=== PATIENT | male | born 1960 | race Caucasian/White ===

== ENCOUNTER 2017-08-26 01:27 | Emergency (ER) | payer MEDICARE, OTHER ==
[~2017-08-26] VITALS: Ht 177.8 cm; Wt 102.3 kg
[2017-08-26] MEDS ORDERED: METO1TAB32 PO (01:49)
[2017-08-26] MEDS ORDERED: LIPI80TA PO (01:49)
[2017-08-26] MEDS ORDERED: BRIL90TA PO (01:49)
[2017-08-26] MEDS ORDERED: ASPI81CH PO (01:49)
[2017-08-26] MEDS ORDERED: LISI2.5T3 PO (01:49)
[2017-08-26] MEDS ORDERED: HYDROmorphone HCL 1 MG/ML SYRINGE (J1170) As Ordered ONE (02:32)
[2017-08-26] MEDS ORDERED: LORazepam 2 MG/ML VIAL (J2060) As Ordered ONE (02:35)
[2017-08-26] MEDS ORDERED: LORazepam 2 MG/ML VIAL (J2060) IV STA (02:36)
[2017-08-26] MEDS ORDERED: HYDROmorphone HCL 1 MG/ML SYRINGE (J1170) IV ONE (02:45)
[2017-08-26] MEDS ORDERED: PROPOFOL 200 MG/20 ML VIAL IV ONE (02:45)
[2017-08-26] MEDS ORDERED: NORCO 5/325MG TABLET (BULK FOR ED) PO ONE (04:00)
[2017-08-26 04:25] VITALS: BP 156/80
[2017-08-26] MEDS ORDERED: DERMABOND TOPICAL SKIN ADHESIVE TOP ONE (04:45)
--- NOTE | 2017-08-26 08:31 | REP ---
Left shoulder two views: There is anterior inferior dislocation of the humeral head. No fracture is identified. Signed by Usman Hirsch MD 08/26/2017 08:22 A
--- NOTE | 2017-08-26 08:32 | REP ---
Left shoulder post reduction: The humeral head dislocation has been reduced and is in satisfactory position and alignment with the glenoid on this single view. Signed by Usman Hirsch MD 08/26/2017 08:24 A
== END 2017-08-26 04:43 | disposition home or self-care (01) ==
LOC: M ED 01:27
DX: S43.005A Unspecified dislocation of left shoulder joint, initial encounter (principal); W10.9XXA Fall (on) (from) unspecified stairs and steps, initial encounter; Y92.89 Other specified places as the place of occurrence of the external cause; Y93.89 Activity, other specified; Y99.8 Other external cause status; I25.10 Atherosclerotic heart disease of native coronary artery without angina pectoris; I10 Essential (primary) hypertension; F17.210 Nicotine dependence, cigarettes, uncomplicated
CPT/HCPCS: 23650; 73020; 73030; 99285; J1170; J2060